=== PATIENT | female | born 1935 | race Caucasian/White ===

== ENCOUNTER → 2017-10-02 | Outpatient (CLI) | payer OTHER ==
[~2017-10-02] MED LIST: ALPR0.5T3 PO; CO Q100C9 PO; FEXO180T PO; LEVA500T PO; LEVO500T3 PO; LISI-363 PO; LOPE2 PO; MAGN250T13 PO; METH4PAK PO; OMEP20TA39 PO; ROSU40 PO; SYNT137T PO; VITD400 PO
== END ==
LOC: HRSP 13:08
PROVIDERS: ATTEND Internal Medicine
DX: J44.9 Chronic obstructive pulmonary disease, unspecified (principal)
CPT/HCPCS: 94620